=== PATIENT | female | born 1945 | race Caucasian/White ===

== ENCOUNTER 2018-01-13 10:00 | Outpatient (CLI) | payer OTHER | END 2018-01-13 21:50 | disposition home or self-care (01) | LOC: SMA 10:00 | PROVIDERS: ATTEND Family Medicine | DX: Z12.31 Encounter for screening mammogram for malignant neoplasm of breast (principal); M17.0 Bilateral primary osteoarthritis of knee | CPT/HCPCS: 77067 ==

== ENCOUNTER 2019-01-14 09:21 | Outpatient (CLI) | payer OTHER | END 2019-01-14 23:29 | disposition home or self-care (01) | LOC: SMA 09:21 | PROVIDERS: ATTEND Family Medicine | DX: Z12.31 Encounter for screening mammogram for malignant neoplasm of breast (principal) | CPT/HCPCS: 77067 ==

== ENCOUNTER 2020-01-04 15:30 | Outpatient (CLI) | payer OTHER | END 2020-01-04 20:31 | disposition home or self-care (01) | LOC: SMA 15:30 | PROVIDERS: ATTEND Family Medicine | DX: Z12.31 Encounter for screening mammogram for malignant neoplasm of breast (principal) | CPT/HCPCS: 77067 ==